=== PATIENT | female | born 1990 | race African-American/Black ===

== ENCOUNTER 2018-08-18 17:21 | Emergency (ER) | payer SELFPAY ==
[~2018-08-18] VITALS: Ht 154.9 cm; Wt 47.7 kg
[2018-08-18 17:24] VITALS: Ht 154.9 cm; Wt 47.7 kg
[2018-08-18] MEDS ORDERED: NORCO 7.5/325 T1 TA1 PO (19:54)
[2018-08-18 20:10] VITALS: BP 132/77
== END 2018-08-18 20:10 | disposition home or self-care (01) ==
LOC: D.ER 17:21
DX: S92.511A Displaced fracture of proximal phalanx of right lesser toe(s), initial encounter for closed fracture (principal); X58.XXXA Exposure to other specified factors, initial encounter; Y93.89 Activity, other specified; Y92.89 Other specified places as the place of occurrence of the external cause; F17.200 Nicotine dependence, unspecified, uncomplicated

== ENCOUNTER 2018-10-30 15:10 | Emergency (ER) | payer SELFPAY ==
[~2018-10-30] VITALS: Ht 154.9 cm; Wt 47.7 kg
[~2018-10-30 15:10] MED LIST: NORCO 7.5/325 T1 TA1 PO
[2018-10-30 15:12] VITALS: Ht 154.9 cm; Wt 47.7 kg
[2018-10-30] MEDS ORDERED: VISTARIL25 MG PO (15:53)
[2018-10-30 18:36] VITALS: BP 128/92
== END 2018-10-30 18:37 | disposition home or self-care (01) ==
LOC: D.ER 15:10
DX: F41.1 Generalized anxiety disorder (principal); F43.0 Acute stress reaction; F17.200 Nicotine dependence, unspecified, uncomplicated